=== PATIENT | female | born 1950 | race Caucasian/White ===

== ENCOUNTER 2019-12-01 12:29 | Inpatient (IN) | payer MEDICARE, BC ==
[~2019-12-01] VITALS: Ht 152.4 cm; Wt 65.3 kg
[2019-12-01] VITALS (13 sets, daily range): BP systolic 123–148; BP diastolic 56–92
[~2019-12-01 12:29] MED LIST: ACET-1059 PO; ALPR0.5T8 PO; AMIT75TA2 PO; ATOR10TA87 PO; FLO110IN IH; HYOS-13 PO; LEVO50TA67 PO; MULT-1085 PO; NORMAL SALINE IV ONE; PREVCR VG; SUMA5SPR2 NS; TRANEXAMIC ACID IV ONE; VANCOMYCIN INJ 1000 MG in NORMAL SALINE 250ml IV.SOLN IV ONE; ceFAZolin 2gm in dextrose, iso 50 ML IV ONE; famotidine 20mg tablet PO ONE; ringers solution, lacted 1,000 ML IV SCH; tranexamic acid inj. 650 MG in normal saline 100ml IV soln 100 ML IV ONE
[2019-12-01 14:27] LABS: BASOPHILS # (AUTO) 0.1 X10'3 (0-0.2); BASOPHILS % (AUTO) 0.9 % (0-1); EOSINOPHILS # (AUTO) 0.5 X10'3 (0-0.9); EOSINOPHILS % (AUTO) 4.9 % (0-6); HEMATOCRIT 42.5 % (35.0-45.0); LYMPHOCYTES # (AUTO) 2.6 X10'3 (1.1-4.8); MEAN CORPUSCULAR HEMOGLOBIN 30.9 PG (27.0-31.0); MEAN CORPUSCULAR HGB CONC 32.9 g/dL (33.0-36.5); MEAN PLATELET VOLUME 9.3 FL (7.4-10.4); MONOCYTES # (AUTO) 0.5 X10'3 (0-0.9); MONOCYTES % (AUTO) 5.1 % (2-12); NEUTROPHILS # (AUTO) 5.9 X10'3 (1.8-7.7); NEUTROPHILS % (AUTO) 62.1 % (42-75); PLATELET COUNT 303 X10'3 (140-440); RED BLOOD COUNT 4.52 X10'6 (4.20-5.60); RED CELL DISTRIBUTION WIDTH 13.2 % (11.5-14.5); WHITE BLOOD COUNT 9.6 X10'3 (4.5-11.0)
[2019-12-01 14:41] LABS: ALANINE AMINOTRANSFERASE 26 U/L (12-78); ALBUMIN 3.8 G/DL (3.4-5.0); ALBUMIN/GLOBULIN RATIO 1.2 (1.1-1.5); ALKALINE PHOSPHATASE 123 IU/L (46-116); ANION GAP 7 (8-16); ASPARTATE AMINO TRANSFERASE 24 U/L (10-37); BILIRUBIN,TOTAL 0.7 MG/DL (0.1-1.0); BLOOD UREA NITROGEN 9 MG/DL (7-18); BUN/CREATININE RATIO 10.7 (6.6-38.0); CALCIUM 8.9 MG/DL (8.5-10.1); CHLORIDE 109 MMOL/L (99-107); CREATININE 0.84 MG/DL (0.40-0.90); GLUCOSE 90 MG/DL (70-104); POTASSIUM 4.3 MMOL/L (3.5-5.1); SODIUM 148 MMOL/L (135-145); TOTAL CARBON DIOXIDE 31.8 MMOL/L (24-32); TOTAL PROTEIN 6.9 G/DL (6.4-8.2); eGFR 67 ML/MIN
[2019-12-01] MEDS ORDERED: ketorolac trometh. 30mg/ml inj. ONE (15:09)
[2019-12-01] MEDS ORDERED: ROPIVAcaine 0.5% (5mg/ml) 30ml vial ONE ×2 (15:09→15:59)
[2019-12-01] MEDS ORDERED: sevoflurane 250ml liquid IH ONE (15:58)
[2019-12-01] MEDS ORDERED: fentaNYL/PF 50MCG/1 ML 2ML syringe ONE (15:59)
[2019-12-01] MEDS ORDERED: propofol inj 20 ML IV ONE (15:59)
[2019-12-01] MEDS ORDERED: midazolam 2 mg/2 ml injection ONE ×2 (15:59→16:05)
[2019-12-01] MEDS ORDERED: tranexamic acid inj. 650 MG in normal saline 100ml IV soln 100 ML IV ONE ×2 (16:30→21:30)
[2019-12-01] MEDS ORDERED: ePHEDrine 50MG/ML INJ. ONE (16:54)
[2019-12-01] MEDS ORDERED: ringers solution, lacted 1,000 ML IV SCH (17:31)
[2019-12-01] MEDS ORDERED: proCHLORperazine 10 MG/2 ml inj IV PRN (17:35)
[2019-12-01] MEDS ORDERED: meperidine/PF 25mg/ml syringe IV PRN ×3 (17:35)
[2019-12-01] MEDS ORDERED: morphine 4 MG/ML inj SYRINge IV PRN (17:35)
[2019-12-01] MEDS ORDERED: morphine 2 MG/ML inj. syringe IV PRN (17:35)
[2019-12-01] MEDS ORDERED: ondansetron/PF 4mg/2ml inj IV PRN ×2 (17:35→18:25)
[2019-12-01] MEDS ORDERED: ROPIVAcaine 0.2% (10 MG/5 ML) BOLUS INJECTION INTERSCALE PRN (17:55)
--- NOTE | 2019-12-01 18:20 | NUR ---
Received from OR via BED , accompanied by Anesthesiologist DR FRANKS and report given by Anesthesiolgist. PATIENT WAKING UP, DENIES PAIN, V/S WNL, NEUROVASCULAR CHECKS INTACT, 18G PIV LUE , DRESSING TO RIGHT SHOULDER CDI W/ COLD POWDER PACK AND ON QUE PUMP AT 4ML/HR , SLING TO RIGHT SHOULDER
[2019-12-01] MEDS ORDERED: diphenhydrAMINE 25mg capsule PO PRN ×2 (18:25)
[2019-12-01] MEDS ORDERED: HYDROmorphone inj. 0.5 MG/0.5 ML DISP.SYRIN IV PRN (18:25)
[2019-12-01] MEDS ORDERED: HYDROmorphone 1 mg/ml syringe IV PRN (18:25)
[2019-12-01] MEDS ORDERED: acetaminophen 325mg tablet PO PRN (18:25)
[2019-12-01] MEDS ORDERED: magnesium hydroxide 30ml (MOM) UD suspension PO PRN (18:25)
[2019-12-01] MEDS ORDERED: bisacodyl 10mg suppository rectal RC PRN (18:25)
[2019-12-01] MEDS ORDERED: oxyCODONE IR 5mg (immed. release) tablet PO PRN (18:25)
[2019-12-01] MEDS: ROPIVAcaine 0.2%/PF PUMP/bolus 550 ML INTERSCALE SCH ×2 (18:30→22:06)
[2019-12-01] MEDS ORDERED: hyoscyamine 0.125mg TAB.SUBL SL PRN (18:50)
[2019-12-01] MEDS ORDERED: acetaminophen w/codeine (30MG) #3 tablet PO PRN (18:50)
[2019-12-01] MEDS ORDERED: SUMATRIPTAN 20 MG BOTHNARES PRN (18:55)
--- NOTE | 2019-12-01 19:00 | NUR ---
PATIENT A&OX4, DENIES PAIN, V/S WNL, NEUROVASCULAR CHECKS INTACT, 18G PIV LUE , DRESSING TO RIGHT SHOULDER CDI W/ COLD POWDER PACK AND ON QUE PUMP AT 4ML/HR , SLING TO RIGHT SHOULDER. PATIENT TAKEN TO 4023B WITH ALL BELONGINGS AND HOOKED UP TO MONITORS IN ROOM AND REPORT GIVEN TO OPERATIONS ANALYST WHO HAS TAKEN OVER PATIENT CARE.
[2019-12-01] MEDS ORDERED: vancomycin/NS 1 GM ADD-VANTAGE 250 ML IV SCH (20:00)
[2019-12-01] MEDS: acetaminophen 325mg tablet PO SCH (21:41)
[2019-12-01] MEDS: sennosides 8.6mg tablet PO SCH (21:41)
[2019-12-01] MEDS: amitriptyline 10mg tablet PO SCH (21:42)
[2019-12-01] MEDS: potassium cl 20mEq in 1/2 NS 1,000 ML IV SCH (21:42)
[2019-12-01] MEDS: atorvastatin 20mg tablet PO SCH (21:42)
[2019-12-02] MEDS: ceFAZolin 1GM/D5W- ADD-VANTAGE 50 ML IV SCH ×2 (00:24→08:01)
[2019-12-02] MEDS: acetaminophen 325mg tablet PO SCH ×4 (01:32→20:23)
[2019-12-02 02:00] VITALS: BP 116/62
[2019-12-02] MEDS: potassium cl 20mEq in 1/2 NS 1,000 ML IV SCH ×3 (02:25→18:25)
[2019-12-02] MEDS: oxyCODONE IR 5mg (immed. release) tablet PO PRN ×4 (05:22→20:22)
[2019-12-02] MEDS: ROPIVAcaine 0.2%/PF PUMP/bolus 550 ML INTERSCALE SCH (05:40)
--- NOTE | 2019-12-02 06:25 | NUR ---
Patient in room ORTHO 4023. I have received report from September and had the opportunity to ask questions and assume patient care.
[2019-12-02 06:46] LABS: BASOPHILS # (AUTO) 0.1 X10'3 (0-0.2); BASOPHILS % (AUTO) 0.7 % (0-1); EOSINOPHILS % (AUTO) 0.3 % (0-6); HEMATOCRIT 36.7 % (35.0-45.0); HEMOGLOBIN 12.2 g/dl (12.0-16.0); LYMPHOCYTES # (AUTO) 1.4 X10'3 (1.1-4.8); MEAN CORPUSCULAR HEMOGLOBIN 31.3 PG (27.0-31.0); MEAN CORPUSCULAR HGB CONC 33.3 g/dL (33.0-36.5); MEAN CORPUSCULAR VOLUME 94.1 FL (78-98); MEAN PLATELET VOLUME 9.7 FL (7.4-10.4); MONOCYTES # (AUTO) 0.6 X10'3 (0-0.9); MONOCYTES % (AUTO) 4.9 % (2-12); NEUTROPHILS # (AUTO) 9.7 X10'3 (1.8-7.7); NEUTROPHILS % (AUTO) 82.1 % (42-75); PLATELET COUNT 271 X10'3 (140-440); RED CELL DISTRIBUTION WIDTH 13.2 % (11.5-14.5); WHITE BLOOD COUNT 11.8 X10'3 (4.5-11.0)
[2019-12-02 07:07] LABS: ANION GAP 11 (8-16); CHLORIDE 106 MMOL/L (99-107); POTASSIUM 3.7 MMOL/L (3.5-5.1); SODIUM 140 MMOL/L (135-145); TOTAL CARBON DIOXIDE 23.2 MMOL/L (24-32)
[2019-12-02] MEDS: FLOVENT 110 MCG IH SCH ×2 (08:00→20:00)
[2019-12-02] MEDS: multivitamins, therapeutics tablet PO SCH (08:02)
[2019-12-02] MEDS: levoTHYROXINE 25mcg tablet PO SCH (08:02)
[2019-12-02] MEDS: aspirin 325mg tablet PO SCH (08:02)
--- NOTE | 2019-12-02 09:47 | NUR ---
Joint replacement pt: Pt AOx1 last night s/p R rotator cuff tear and humerus fx repair. PO pending regular diet. Ensure enlive TIDWM recommended for additional protein needs post-op in view of ALOC likely to impact PO; notified. Addendum: 12/02/19 at [address] Amended: Links added.
[2019-12-02] MEDS: lactose-reduced food (Ensure Enlive) - 237ml bottle PO SCH ×2 (13:00→18:00)
[2019-12-02 18:00] VITALS: BP 124/60
--- NOTE | 2019-12-02 18:15 | NUR ---
Patient in room ORTHO 4015. I have received report from THERESE Us and had the opportunity to ask questions and assume patient care.
[2019-12-02] MEDS: sennosides 8.6mg tablet PO SCH (20:23)
[2019-12-02] MEDS: amitriptyline 10mg tablet PO SCH (20:23)
[2019-12-02] MEDS: atorvastatin 20mg tablet PO SCH (20:24)
[2019-12-02 22:00] VITALS: BP 126/72
[2019-12-03] MEDS: ROPIVAcaine 0.2%/PF PUMP/bolus 550 ML INTERSCALE SCH (01:30)
[2019-12-03] MEDS: oxyCODONE IR 5mg (immed. release) tablet PO PRN ×3 (01:39→15:10)
[2019-12-03] MEDS: acetaminophen 325mg tablet PO SCH ×3 (01:42→15:15)
[2019-12-03 06:00] VITALS: BP 111/78
[2019-12-03 06:07] LABS: BASOPHILS # (AUTO) 0.1 X10'3 (0-0.2); BASOPHILS % (AUTO) 0.5 % (0-1); EOSINOPHILS # (AUTO) 0.3 X10'3 (0-0.9); EOSINOPHILS % (AUTO) 2.6 % (0-6); HEMATOCRIT 33.7 % (35.0-45.0); HEMOGLOBIN 11.2 g/dl (12.0-16.0); LYMPHOCYTES # (AUTO) 2.4 X10'3 (1.1-4.8); LYMPHOCYTES % (AUTO) 18.9 % (21-51); MEAN CORPUSCULAR HEMOGLOBIN 31.1 PG (27.0-31.0); MEAN CORPUSCULAR HGB CONC 33.4 g/dL (33.0-36.5); MEAN CORPUSCULAR VOLUME 93.3 FL (78-98); MEAN PLATELET VOLUME 9.7 FL (7.4-10.4); MONOCYTES # (AUTO) 1.1 X10'3 (0-0.9); MONOCYTES % (AUTO) 8.6 % (2-12); NEUTROPHILS # (AUTO) 8.8 X10'3 (1.8-7.7); NEUTROPHILS % (AUTO) 69.4 % (42-75); PLATELET COUNT 245 X10'3 (140-440); RED BLOOD COUNT 3.61 X10'6 (4.20-5.60); RED CELL DISTRIBUTION WIDTH 13.7 % (11.5-14.5); WHITE BLOOD COUNT 12.7 X10'3 (4.5-11.0)
--- NOTE | 2019-12-03 06:19 | NUR ---
Problems reprioritized. Patient report given, questions answered & plan of care reviewed with THERESE [facility].
--- NOTE | 2019-12-03 06:29 | NUR ---
Patient in room ORTHO 4023. I have received report from Destiney SALEH and had the opportunity to ask questions and assume patient care.
[2019-12-03] MEDS: FLOVENT 110 MCG IH SCH (08:00)
--- NOTE | 2019-12-03 08:40 | NUR ---
Patient c/o coughing. Observed patient cough while taking po meds. Patient states this is not new. Educated patient on tucking chin while swallowing. No coughing with this technique. Encouraged patient to follow up with PMD.
[2019-12-03] MEDS: aspirin 325mg tablet PO SCH (08:41)
[2019-12-03] MEDS: multivitamins, therapeutics tablet PO SCH (08:41)
[2019-12-03] MEDS: levoTHYROXINE 25mcg tablet PO SCH (08:41)
[2019-12-03] MEDS: lactose-reduced food (Ensure Enlive) - 237ml bottle PO SCH ×2 (08:44→13:09)
[2019-12-03 10:00] VITALS: BP 143/68
[2019-12-03] MEDS: potassium cl 20mEq in 1/2 NS 1,000 ML IV SCH (10:25)
--- NOTE | 2019-12-03 11:22 | NUR ---
F/u: RN reports pt trouble swallowing thin liquids and taking meds this AM. Currently AOx4 though AOx1 previously post-op; reports "nothing new" per RN today. Surgeon is aware per RN; CASSIE recommended TRANSPORTATION ECONOMICS TEACHER BSS given possible aspiration risk. RN reports notified daughter to f/u as outpatient for TRANSPORTATION ECONOMICS TEACHER recs. Addendum: 12/03/19 at [address] Amended: Links added.
--- NOTE | 2019-12-03 12:40 | NUR ---
Patient states she gargled and is speaking better, not hoarse anymore. States her complains about her coughing all the time. Patient is tucking her chin to swallow and shows no sign of possible aspiration at this time. Daughter is at bedside and agrees with assessment and patients comments.
--- NOTE | 2019-12-03 15:59 | NUR ---
PT IS BEING D/C AND IS VOMITING, PT DOES NOT HAVE AN IV, SPOKE W/PHARMACY AND ZOFRAN IS A ONE TO ONE CONVERSION THEREFORE ORDERING ZOFRAN FROM IV TO PO, CONTINUE TO MONITOR
[2019-12-03] MEDS ORDERED: ondansetron 4mg rapidly disintigrating tab PO ONE (16:00)
--- NOTE | 2019-12-03 16:04 | NUR ---
SCANNER ON COMPUTER NOT SCANNING MEDS INTO [employer], CHECKED MED PRIOR TO ADMIN, CONTINUE TO MONITOR
[2019-12-03] MEDS ORDERED: acetaminophen 325mg tablet PO PRN (18:25)
== END 2019-12-03 16:30 | disposition home or self-care (01) | DRG 483 ==
LOC: UNDOADMIN 12:29 → PAS IN 12:29 → EDSTATUS 15:15 → PAS IN 18:25 → ORTHO 4S 18:45
PROVIDERS: ADMIT Orthopaedic Surgery; ATTEND Orthopaedic Surgery
PROC: 0LS30ZZ Reposition Right Upper Arm Tendon, Open Approach (ICD-10-PCS; 2019-12-01)
PROC: 3E0T3BZ Introduction of Anesthetic Agent into Peripheral Nerves and Plexi, Percutaneous Approach (ICD-10-PCS; 2019-12-01)
PROC: 0RRJ00Z Replacement of Right Shoulder Joint with Reverse Ball and Socket Synthetic Substitute, Open Approach (ICD-10-PCS; principal; 2019-12-01 15:58)
DX: S42.291A Other displaced fracture of upper end of right humerus, initial encounter for closed fracture (principal); E03.9 Hypothyroidism, unspecified; W01.0XXA Fall on same level from slipping, tripping and stumbling without subsequent striking against object, initial encounter; M75.101 Unspecified rotator cuff tear or rupture of right shoulder, not specified as traumatic; M75.21 Bicipital tendinitis, right shoulder; G43.909 Migraine, unspecified, not intractable, without status migrainosus; Z91.040 Latex allergy status; Y93.89 Activity, other specified; Y92.89 Other specified places as the place of occurrence of the external cause; Y99.8 Other external cause status; Z90.710 Acquired absence of both cervix and uterus; Z87.891 Personal history of nicotine dependence; Z79.899 Other long term (current) drug therapy
CPT/HCPCS: 36415; 80051; 80053; 85025; 87081; 93005; 97110; 97161; 97530; A4618; A7000; C1776; G0378; J0690; J1170; J1885; J2250; J2405; J2704; J2795; J3010; J3370; J3480; J7120